=== PATIENT | female | born 1995 | race Caucasian/White ===

== ENCOUNTER 2021-09-24 13:58 | Emergency (ER) | payer MEDICAID, SELFPAY ==
[2021-09-24 13:59] VITALS: BP 120/86; PULSE 93; RESP 18; TEMP 36.2; O2SAT 100; BMI 26.5
--- NOTE | 2021-09-24 15:28 | EDS_ITS ---
HPI History of Present Illness Chief Complaint: Numb/Ting Detail of Chief Complaint: Left arm numbness resolved. Informant: patient Onset/Context/Timing Onset: Days Context: Gradual Onset Timing: Continuous Current Severity: Gone Maximum Severity: Mild Narrative Narrative: 26-year-old female no seen past medical history. Prior . States that for the last several days to weeks she has had tingling in her left arm. She felt a tightness in her left posterior shoulder today was massaging it actually improves the tingling in her left arm but then she felt her whole body get numb. Said she thought her nerves are getting the best ever she walked outside to get some air. Her symptoms have now resolved. She thinks it may have been secondary to anxiety. She is never had a stroke or mini stroke. She has had no recent head trauma. She is currently on no medications. She denies any headache. She denies any weakness. Prior similar symptoms: No Recent Illness/Hospitalization: No PFSH PFSH Medical History no medical history no medical history Home Medications NK 09/24/21 [History Last Taken Unknown] Allergy/AdvReac Type Severity Reaction Status Date / Time Penicillins Allergy Rash Verified 09/24/21 14:01 Family History no significant family his Surgical History no surgical history Social History Smoking Status: Current every day smoker tobacco type: e-cigarettes ROS ROS ED ROS Narrative No recent illness. Review of Systems ROS Unobtainable: Denies due to encephalopathy Constitutional Constitutional ED: Denies chills Eyes Eyes: Denies blurry vision ENT ENT ED: Denies ear pain Cardiovascular Cardiovascular: Denies chest pain Respiratory/Chest Respiratory/Chest: Denies cough Gastrointestinal Gastrointestinal: Denies abdominal pain Genitourinary Genitourinary ED: Denies dysuria Musculoskeletal Musculoskeletal: Denies arthralgias Integumentary Denies abscess Neurologic Neurologic: Denies headache(s) Psychiatric Psychiatric: Reports anxiety Endocrine Endocrinology: Denies cold intolerance Allergic/Immunologic Allergic/Immunologic ED: Denies mouth swelling or tongue swelling EXAM Physical Exam Narrative Exam Narrative: 26-year-old female with a totally normal exam. Vital signs stable afebrile. Pulse ox 9% on room air. Lungs clear to auscultation. Heart regular rhythm. Abdomen soft nontender. Moving all 4 extremities. 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 Dorsi plantarflexion intact. Back nontender. Neuro exam normal. NIH 0. Fingertip to nose and [id number] within normal limits. She gets up out of bed and ambulates to the door without any difficulty. Negative Romberg. Const Vital Signs: 09/24/21 13:59 Temperature 97.1 F L Temperature Source Temporal Pulse Rate 93 Respiratory Rate 18 Blood Pressure 120/86 H Blood Pressure Mean 97 Pulse Ox 100 Oxygen Delivery Method Room Air Positive well nourished and well developed; Negative for obese, cachectic, contractures or unkempt General Appearance ED: well developed; Negative for unkempt, cachectic or contractures Nutritional Appearance: Negative for cachectic or obese HEENT Reports moist mucous membranes; Denies dry mucous membranes Negative for trauma or tenderness Mouth ED: No dry mucous membranes Mouth: No dry mucous membranes Eyes PERRL and EOMs intact bilaterally General Eye ED: Negative for pale conjunctiva or scleral icterus Neck no lymphadenopathy, supple and no JVD General: Negative for tenderness Chest Wall inspection of chest normal and palpation of chest normal Resp normal respiratory effort and clear to auscultation bilaterally Effort and Inspection: Negative for retractions Auscultation: Negative for rales, rhonchi or wheezes Cardio regular rate, regular rhythm, S1 normal heart sound, S2 normal heart sound and no murmurs Rate: Negative for bradycardia or tachycardic Rhythm: Negative for abnormal rhythm GI normal to inspection, nondistended, normoactive bowel sounds, non-tender, non- distended and no masses; Negative for hepatosplenomegaly Inspection: Negative for abdominal distention Auscultation: normoactive bowel sounds Palpation: soft; Negative for tender, guarding, splenomegaly, mass or rebound tenderness present Back/Spine no CVA tenderness Extremity normal to inspection General Extremety ED: Negative for edema or tenderness General Extremity: Negative for edema Neuro oriented x3, CN's II-XII intact bilaterally and no sensory deficits noted Sensorium / Orientation: alert; Negative for orientation impaired, lethargic or stuporous Motor Exam: strength 5/5 throughout; Negative for general weakness or strength abnormal Psych mental status grossly normal Appearance: Negative for unkempt Attitude: No agitated Mood & Affect: anxious; Negative for depressed Skin no rashes or lesions noted, no wounds and skin turgor normal General Skin Exam: elasticity normal Rashes: No rashes noted Trauma: Negative for abrasion Wounds: Negative for wounds noted MDM MDM MDM Narrative Medical decision making narrative: Young female most likely had a pinched nerve in her left shoulder. The other symptoms she is having are consistent with anxiety. Is completely normal exam at this time. She and I discussed she is comfortable with being given 1 Ativan for anxiety. She is comfortable not receiving any blood work or imaging because she simply does not need those. She will follow-up with her primary care physician. Discharge Plan Triage Chief Complaint: Numb/Ting ED Provider: Nahid Capps Dx/Rx/DC Orders Clinical Impression: Pinched nerve, Anxiety Instructions: ED Anxiety Reaction Prescriptions: No Action NK Primary Care Provider: Valdo Clarke Referrals: Valdo Clarke DO [Primary Care Provider] - 1 Week if not improving Activity Restrictions/Additional Instructions: I think your left arm was a pinched nerve in your shoulder and neck. That is resolved. I think your other symptoms are from anxiety. Follow-up with your doctor. Disposition Disposition: Home, Self Care
[2021-09-24] MEDS: LORazepam 1 MG Tablet PO (15:48)
== END 2021-09-24 15:49 | disposition home or self-care (01) ==
PROVIDERS: Emergency Provider Emergency Medicine; PCP Family Medicine; Visit Provider Emergency Medicine
DX: G58.9 Mononeuropathy, unspecified (principal); F41.9 Anxiety disorder, unspecified; F17.290 Nicotine dependence, other tobacco product, uncomplicated
CPT/HCPCS: 99284

== ENCOUNTER 2021-11-03 13:34 | Emergency (ER) | payer MEDICAID, SELFPAY ==
[2021-11-03 13:35] VITALS: PULSE 126; RESP 18; TEMP 37.2; O2SAT 100; BMI 29.7
[2021-11-03 13:42] VITALS: BP 114/88
[2021-11-03 13:55] VITALS: BP 119/82; BP 120/81; BP 121/89; PULSE 120; PULSE 125; PULSE 130
--- NOTE | 2021-11-03 14:00 | EKG12_ITS ---
Test Reason : Dizziness Blood Pressure : / mmHG Vent. Rate : 121 BPM Atrial Rate : 121 BPM P-R Int : 146 ms QRS Dur : 084 ms QT Int : 330 ms P-R-T Axes : 063 036 022 degrees QTc Int : 468 ms Sinus tachycardia Nonspecific T wave abnormality Abnormal ECG Confirmed by DANIELLA PEDRAZA, NAKIA ([id number]), film editor supervisor HERNANDEZ HERNANDEZ ([id number]) on 11/08/2021 11:07:43 AM Referred By: Tony Confirmed By:ALBARO BREWER MD
--- NOTE | 2021-11-03 14:01 | VDLE_ITS ---
Reason For Study: Pain RIGHT LEFT GSV is normal. GSV is normal. CFV is compressible, spontaneous, phasic, CFV is compressible, spontaneous, phasic, competent and demonstrates normal competent, and demonstrates normal augmentation. augmentation. FV is compressible, spontaneous, phasic, FV is compressible, spontaneous, phasic, competent and demonstrates normal competent and demonstrates normal augmentation. augmentation. POP V is compressible, spontaneous, phasic, POP V is compressible, spontaneous, phasic, competent and demonstrates normal competent and demonstrates normal augmentation. augmentation. T/P Trunk is compressible. T/P Trunk is compressible. PTV is compressible. PTV is compressible. RT PerV is compressible. LT PerV is compressible. Procedure This is a venous duplex using B-mode, color flow and spectral Doppler. Exam performed portable in ED. A preliminary report was called and/or faxed to ED RN. VL/Venous Duplex US - Andrea Extrem Interpretation Summary No evidence for acute deep venous thrombosis bilateral lower extremities with p atent and compressible bilateral great saphenous veins. Ordering Physician: Jose Beltrán Referring Physician: Valdo Clarke Performed By: Deanne Jones RVT
--- NOTE | 2021-11-03 14:09 | NURSING ---
NO OLD EKGS
[2021-11-03 14:26] LABS: Absolute Lymphocyte Count 0.34 X10^3/uL (0.83-4.51); Absolute Neutrophil Count 6.7 X10^3/uL (2.0-7.7); Basophil# 0.02 X10^3/uL; Basophil% 0.3 % (0-1); Eosinophil# 0.02 X10^3/uL; Eosinophils% 0.3 % (0-5); Hematocrit 35.7 % (37-47); Hemoglobin 12.6 g/dL (12.0-15.0); Lymphocyte # 0.34 X10^3/ul (0.83-4.51); Lymphocyte % 4.4 % (19-41); Mean Corp Hgb Conc 35.3 g/dL (32-36); Mean Corpuscular Hgb 32.7 pg (27.0-32.0); Mean Corpuscular Volume 92.7 fL (81-99); Mean Platelet Vol. 10.6 fl (6.2-12.0); Monocyte# 0.53 X10^3/uL; Monocyte% 6.9 % (0-10); NRBC Flagged by Analyzer 0 % (0-5); Neutrophil # 6.72 X10^3/uL (2.7-7.7); Neutrophil % 87.6 % (47-70); POSITIVE DIFFERENTIAL YES; Platelet Count 151 K/mm3 (150-450); RBC Distribution Width CV 13.2 % (11.6-14.6); RBC Distribution Width SD 44.4 fl (35.1-43.9); Red Blood Count 3.85 M/mm3 (4.2-5.4); White Blood Count 7.7 K/mm3 (4.4-11.0)
[2021-11-03 14:27] LABS: Differential Indicated SCAN CRITERIA MET
[2021-11-03] MEDS: 0.9% Normal Saline 1,000 ML 1000 ML IV (14:36)
[2021-11-03 14:42] LABS: Internal QC Validated? YES +Cl - CLEAR BKGD; Pregnancy, Serum, hCG Quali. NEGATIVE Negative
[2021-11-03 14:50] LABS: ALB/GLOB Ratio 1.2 RATIO (0.9-2.4); AST(SGOT) 16 U/L (15-37); Alanine Aminotransfer ALT/SGPT 24 U/L (13-56); Albumin, Serum 4.4 g/dL (3.2-5.0); Alkaline Phosphatase 83 U/L (45-117); Anion Gap 8 (5-15); BUN 12 mg/dL (7-18); Calcium,Total 9.7 mg/dL (8.5-10.1); Chloride 103 mmol/L (98-107); Creatinine, Serum 0.92 mg/dL (0.55-1.02); EST Glomerular Filtration Rate 77 mL/min (>60); Est Glom Filt Rate - Afr Amer 94 mL/min (>60); Estimated Creatinine Clearance 75.98 ml/min; Globulin 3.8 g/dL (2.2-4.2); Glucose 111 mg/dL (74-106); Potassium 3.5 mmol/L (3.5-5.1); Protein, Total 8.2 g/dL (6.4-8.2); Sodium Level 136 mmol/L (136-145); Troponin-I HS < 3 pg/mL (3.0-54.0)
--- NOTE | 2021-11-03 15:02 | RAD_ITS ---
STUDY: X-RAY CHEST REASON FOR EXAM: Female, 26 years old. sob TECHNIQUE: Single AP portable view of the chest. COMPARISON: None. FINDINGS: EKG electrodes are seen. The lungs are clear and expanded. There is no demonstrated pleural abnormality. Normal size heart. Normal mediastinum and shantel. Normal visualized pulmonary arteries. Normal visualized aortic arch and descending thoracic aorta. Normal visualized thoracic spine. Normal visualized ribs, clavicles, and shoulders. There is no demonstrated abnormality of the visualized soft tissue structures of the upper abdomen. RAD/Chest 1 View (Portable) IMPRESSION: Normal x-ray examination of the chest. Electronically Signed: Christian Salazar MD at 15:22 EDT ,
--- NOTE | 2021-11-03 16:02 | EX.ED.DYSGE1 ---
HPI History of Present Illness Chief Complaint: Dizziness Informant: patient and friend Narrative Narrative: Patient presenting here with her friend, was standing at work lightheaded symptoms with palpitations. Reported she looked pale. Denied any syncopal episodes. No chest pains. Intermittent racing heart for the past 2 weeks. She has had some leg cramping on and off for 2 weeks. No recent travel, surgeries, or immobilizations. No history of PE or DVTs. No oral contraceptives, no tobacco history. Reported maybe in the ED couple months ago with mild symptoms evaluated with no testing. Denies any cough. Denies chest pains. Does report drinking coffee occasionally denies energy drinks. Reported paresthesia's legs and left arm. No headaches or visual changes. Prior similar symptoms: Yes PFSH PFSH Home Medications NK 09/24/21 [History Last Taken Unknown] Allergy/AdvReac Type Severity Reaction Status Date / Time Penicillins Allergy Rash Verified 11/03/21 13:35 Surgical History Hx of section Social History Smoking Status: Never smoker ROS ROS ED Constitutional Constitutional ED: Denies chills, fever(s) or sweats Eyes Eyes: Denies change in vision ENT ENT ED: Denies dysphagia or sore throat Cardiovascular Cardiovascular: Reports palpitations and racing heartbeat; Denies chest pain or leg edema Respiratory/Chest Respiratory/Chest: Denies cough, dyspnea or dyspnea on exertion Gastrointestinal Gastrointestinal: Denies abdominal pain, diarrhea, nausea or vomiting Genitourinary Genitourinary ED: Denies dysuria, hematuria or urinary frequency Musculoskeletal Musculoskeletal: Denies back pain, extremity pain or neck pain Integumentary Denies rash or wounds Neurologic Neurologic: Reports paresthesias; Denies headache(s) or weakness EXAM Physical Exam Const Vital Signs: 11/03/21 13:35 11/03/21 13:42 11/03/21 13:55 Temperature 99.0 F Temperature Source Oral Pulse Rate 126 H Pulse Rate [Lying] 120 H Pulse Rate [Sitting (for 1 minute prior to obtaining)] 125 H Pulse Rate [Standing (for 1 minute prior to obtaining)] 130 H Respiratory Rate 18 Respiratory Effort Respiratory Pattern Blood Pressure 114/88 H Blood Pressure [Lying] 119/82 H Blood Pressure [Sitting (for 1 minute prior to obtaining)] 120/81 H Blood Pressure [Standing (for 1 minute prior to obtaining)] 121/89 H Blood Pressure Mean 96 Blood Pressure Mean [Lying] 94 Blood Pressure Mean [Sitting (for 1 minute prior to obtaining)] 94 Blood Pressure Mean [Standing (for 1 minute prior to obtaining)] 99 Pulse Ox 100 Oxygen Delivery Method Room Air 11/03/21 13:57 11/03/21 16:11 Temperature Temperature Source Pulse Rate 128 H Pulse Rate [Lying] Pulse Rate [Sitting (for 1 minute prior to obtaining)] Pulse Rate [Standing (for 1 minute prior to obtaining)] Respiratory Rate 16 Respiratory Effort Normal Respiratory Pattern Normal Blood Pressure 112/83 H Blood Pressure [Lying] Blood Pressure [Sitting (for 1 minute prior to obtaining)] Blood Pressure [Standing (for 1 minute prior to obtaining)] Blood Pressure Mean Blood Pressure Mean [Lying] Blood Pressure Mean [Sitting (for 1 minute prior to obtaining)] Blood Pressure Mean [Standing (for 1 minute prior to obtaining)] Pulse Ox 99 Oxygen Delivery Method Positive well nourished and well developed General Appearance ED: well developed and NAD HEENT Reports moist mucous membranes normocephalic and atraumatic Eyes PERRL, EOMs intact bilaterally and conjunctivae normal General Eye ED: Yes normal appearance of both eyes Neck no lymphadenopathy and supple General: Negative for tenderness Chest Wall Chest: Negative for tenderness Resp normal respiratory effort and normal air movement Effort and Inspection: symmetric chest movement; Negative for respiratory distress Cardio regular rhythm and no murmurs Rate: tachycardic Peripheral Pulses: pulses 2+ throughout GI normal to inspection, nondistended, normoactive bowel sounds and non-tender Palpation: Negative for guarding or rebound tenderness present Back/Spine no CVA tenderness and no thoracic nor lumbar tenderness Extremity normal to inspection General Extremety ED: Negative for edema or tenderness General Extremity: Negative for edema Neuro oriented x3, CN's II-XII intact bilaterally and no sensory deficits noted Neuro Narrative: Sensorium / Orientation: awake and alert Skin no rashes or lesions noted and no wounds MDM MDM MDM Narrative Medical decision making narrative: Patient EKG sinus tachycardia normal QTC. Given IV fluids, cardiac work-up negative. Dimer obtained due to low risk Wells criteria with tachycardia was negative. 1 view chest x-ray reviewed by myself and read by radiology shows no acute process. Hemoglobin 12.6. Electrolytes are all normal. Creatinine 0.92. Fluids heart rate 110s to 120s. She is asymptomatic with this. Ultrasounds of both lower extremities negative for DVT. No current Holter monitor available. That was done. She will follow-up with her PCP for this. Also given cardiology follow-up. Return precautions discussed. All questions were answered. Lab Data Labs: Laboratory Results - last 24 hr 11/03/21 11/03/21 11/03/21 14:19 14:19 14:19 WBC 7.7 RBC 3.85 L Hgb 12.6 Hct 35.7 L MCV 92.7 MCH 32.7 H MCHC 35.3 RDW Std Deviation 44.4 H RDW Coeff of Celina 13.2 Plt Count 151 MPV 10.6 Immature Gran % (Auto) 0.500 Neut % (Auto) 87.6 H Lymph % (Auto) 4.4 L Crockett % (Auto) 6.9 Eos % (Auto) 0.3 Baso % (Auto) 0.3 Absolute Neuts (auto) 6.7 Absolute Lymphs (auto) 0.34 L Nucleated RBC % 0 D-Dimer Quant (PE/DVT) 0.30 Sodium 136 Potassium 3.5 Chloride 103 Carbon Dioxide 25.0 Anion Gap 8 BUN 12 Creatinine 0.92 Estim Creat Clear Calc 75.98 Est GFR (MDRD) Af Amer 94 Est GFR (MDRD) Non-Af 77 BUN/Creatinine Ratio 13.0 Glucose 111 H Calcium 9.7 Total Bilirubin 1.60 H AST 16 ALT 24 Alkaline Phosphatase 83 Troponin I High Sens < 3 L Total Protein 8.2 Albumin 4.4 Globulin 3.8 Albumin/Globulin Ratio 1.2 Serum , Qual 11/03/21 14:19 WBC RBC Hgb Hct MCV MCH MCHC RDW Std Deviation RDW Coeff of Celina Plt Count MPV Immature Gran % (Auto) Neut % (Auto) Lymph % (Auto) Crockett % (Auto) Eos % (Auto) Baso % (Auto) Absolute Neuts (auto) Absolute Lymphs (auto) Nucleated RBC % D-Dimer Quant (PE/DVT) Sodium Potassium Chloride Carbon Dioxide Anion Gap BUN Creatinine Estim Creat Clear Calc Est GFR (MDRD) Af Amer Est GFR (MDRD) Non-Af BUN/Creatinine Ratio Glucose Calcium Total Bilirubin AST ALT Alkaline Phosphatase Troponin I High Sens Total Protein Albumin Globulin Albumin/Globulin Ratio Serum , Qual NEGATIVE Radiography Diagnostic Testing: Clinical Impression(s) from Imaging Studies Venous Doppler Study 11/03/21 14:01 Interpretation Summary No evidence for acute deep venous thrombosis bilateral lower extremities with patent and compressible bilateral great saphenous veins. Ordering Physician: Jose Beltrán Referring Physician: Valdo Clarke Performed By: Deanne Jones, T Chest X-Ray 11/03/21 15:02 IMPRESSION: Normal x-ray examination of the chest. Electronically Signed: Christian Salazar MD at 15:22 EDT , EKG Initial EKG: Attestation: I personally reviewed and interpreted this EKG as follows: Comments: Sinus rate of 121. No ST or T wave changes. Normal QTC. Discharge Plan Triage Chief Complaint: Dizziness ED Provider: Jose Beltrán Dx/Rx/DC Orders Clinical Impression: Vasovagal near syncope, Sinus tachycardia, Bilateral leg cramps Instructions: Understanding Tachycardia, ED Near-Fainting, Uncertain Cause Prescriptions: No Action NK Primary Care Provider: Valdo Clarke Referrals: Mayco Maddox MD [Med Staff - Active Staff] - 1-2 Weeks Valdo Clarke DO [Primary Care Provider] - 3-5 Days Activity Restrictions/Additional Instructions: Work-up negative. EKG notes sinus rhythm tachycardic. Cardiac work-up negative D-dimer negative. Ultrasound lower extremities negative. Chest x-ray negative. Hemoglobin all electrolytes are normal. Troponin negative. Continue oral fluids for hydration. Avoid caffeine's or energy drinks. You will likely need a Holter monitor as an outpatient. Discussed this with your PCP or follow-up with cardiology. Return if any worsening symptoms. Disposition Disposition: Home, Self Care Discharge Date/Time: 11/03/21 16:15
[2021-11-03 16:11] VITALS: BP 112/83; PULSE 128; RESP 16; O2SAT 99
== END 2021-11-03 16:15 | disposition home or self-care (01) ==
PROVIDERS: Emergency Provider Emergency Medicine; PCP Family Medicine; Visit Provider Emergency Medicine
DX: R55 Syncope and collapse (principal); R00.0 Tachycardia, unspecified; M79.604 Pain in right leg; M79.605 Pain in left leg; F17.200 Nicotine dependence, unspecified, uncomplicated
CPT/HCPCS: 71045; 80053; 84484; 84703; 85025; 85379; 93005; 93970; 96360; 96361; 99285; J7030; A4216

== ENCOUNTER → 2022-02-09 | Outpatient (CLI) | payer MEDICAID, SELFPAY ==
[2022-02-09 16:33] LABS: Thyroid Stim Hormone (TSH) 2.01 uIU/mL (0.358-3.74)
== END | disposition home or self-care (01) ==
LOC: LAB 14:15
PROVIDERS: PCP Family Medicine; Visit Provider Internal Medicine Cardiovascular Disease
DX: R00.2 Palpitations (principal)
CPT/HCPCS: 36415; 84443

== ENCOUNTER → 2022-02-22 | Outpatient (CLI) | payer MEDICAID, SELFPAY | END | disposition home or self-care (01) | LOC: PSN 08:24 | PROVIDERS: PCP Family Medicine; Referring Provider Internal Medicine Cardiovascular Disease; Visit Provider Internal Medicine Cardiovascular Disease | DX: R00.2 Palpitations (principal) | CPT/HCPCS: 93225; 93226 ==